=== PATIENT | female | born 1945 | race Two or more races ===

== ENCOUNTER 2021-06-11 06:25 | Day surgery (SDC) | payer OTHER | END 2021-06-11 12:50 | disposition home or self-care (01) | LOC: AMB-ENDOS 06:25 | PROVIDERS: ATTEND Surgery | DX: K62.89 Other specified diseases of anus and rectum (principal); K64.8 Other hemorrhoids; Z20.822 Contact with and (suspected) exposure to COVID-19 ==

== ENCOUNTER 2022-02-17 12:15 | Inpatient (IN) | payer OTHER ==
[~2022-02-17] VITALS: Ht 152.4 cm; Wt 68.0 kg
[2022-02-17] MEDS ORDERED: HYDROCHLOROTHIA25 MG PO (15:34)
[2022-02-17] MEDS ORDERED: TOPROL XL25 M1 PO (15:34)
[2022-02-17] MEDS ORDERED: VASOTEC20 M1 PO (15:34)
[2022-02-17] MEDS ORDERED: FENOF PO (15:35)
[2022-02-17] MEDS ORDERED: METHYLPRED PO (15:35)
[2022-02-17] MEDS ORDERED: ATORVASTATIN CA40 MG PO (15:36)
[2022-02-17] MEDS ORDERED: AMLODIPI PO (15:37)
[2022-02-17] MEDS ORDERED: PANTOPRAZOLE SO40 M2 PO (15:37)
[2022-02-17] MEDS ORDERED: DRAMAMINE LESS25 MG PO (15:38)
[2022-02-20] MEDS ORDERED: NORVASC5 MG PO (13:07)
[2022-02-20] MEDS ORDERED: FENOFIBRATE48 MG PO (13:08)
[2022-02-20] MEDS ORDERED: METHYLPREDNISOLO4 MG PO (13:09)
== END 2022-03-03 14:47 | disposition home or self-care (01) | DRG 329 ==
LOC: ADM 12:15 → EDSTATUS 12:15 → SURH 02-19 07:00 → O/R 02-20 05:40 → SURH 02-20 07:00
PROVIDERS: Urology; ADMIT Surgery; ATTEND Surgery
PROC: 0DQ84ZZ Repair Small Intestine, Percutaneous Endoscopic Approach (ICD-10-PCS; 2022-02-20)
PROC: 0TQB0ZZ Repair Bladder, Open Approach (ICD-10-PCS; 2022-02-20)
PROC: 0DNW4ZZ Release Peritoneum, Percutaneous Endoscopic Approach (ICD-10-PCS; 2022-02-20)
PROC: 0TNB4ZZ Release Bladder, Percutaneous Endoscopic Approach (ICD-10-PCS; 2022-02-20)
PROC: 0DJD8ZZ Inspection of Lower Intestinal Tract, Via Natural or Artificial Opening Endoscopic (ICD-10-PCS; 2022-02-20)
PROC: 0T7D8DZ Dilation of Urethra with Intraluminal Device, Via Natural or Artificial Opening Endoscopic (ICD-10-PCS; 2022-02-20)
PROC: 0DTN4ZZ Resection of Sigmoid Colon, Percutaneous Endoscopic Approach (ICD-10-PCS; principal; 2022-02-20 07:00)
PROC: 0DBP4ZZ Excision of Rectum, Percutaneous Endoscopic Approach (ICD-10-PCS; 2022-02-20 07:00)
PROC: 02HV33Z Insertion of Infusion Device into Superior Vena Cava, Percutaneous Approach (ICD-10-PCS; 2022-02-24)
PROC: 30233N1 Transfusion of Nonautologous Red Blood Cells into Peripheral Vein, Percutaneous Approach (ICD-10-PCS; 2022-02-25)
PROC: 4A12X4Z Monitoring of Cardiac Electrical Activity, External Approach (ICD-10-PCS; 2022-02-26)
DX: K57.30 Diverticulosis of large intestine without perforation or abscess without bleeding (principal); K29.61 Other gastritis with bleeding; N32.1 Vesicointestinal fistula; D62 Acute posthemorrhagic anemia; K91.71 Accidental puncture and laceration of a digestive system organ or structure during a digestive system procedure; R33.8 Other retention of urine; K66.0 Peritoneal adhesions (postprocedural) (postinfection); E87.6 Hypokalemia; E83.42 Hypomagnesemia; R10.32 Left lower quadrant pain; R19.4 Change in bowel habit; R19.7 Diarrhea, unspecified; K64.8 Other hemorrhoids; D12.6 Benign neoplasm of colon, unspecified; I12.9 Hypertensive chronic kidney disease with stage 1 through stage 4 chronic kidney disease, or unspecified chronic kidney disease; N18.30 Chronic kidney disease, stage 3 unspecified; Z20.822 Contact with and (suspected) exposure to COVID-19; Z86.718 Personal history of other venous thrombosis and embolism; G47.33 Obstructive sleep apnea (adult) (pediatric)

== ENCOUNTER 2022-03-09 11:49 | Inpatient (IN) | payer OTHER ==
[~2022-03-09] VITALS: Ht 152.4 cm; Wt 68.0 kg
[~2022-03-09 11:49] MED LIST: AMLODIPI PO; ATORVASTATIN CA40 MG PO; DRAMAMINE LESS25 MG PO; FENOF PO; FENOFIBRATE48 MG PO; HYDROCHLOROTHIA25 MG PO; METHYLPRED PO; METHYLPREDNISOLO4 MG PO; NORVASC5 MG PO; PANTOPRAZOLE SO40 M2 PO; TOPROL XL25 M1 PO; VASOTEC20 M1 PO
[2022-03-10] MEDS ORDERED: FUSION PLUS CA1 EACH (14:59)
[2022-03-10] MEDS ORDERED: ATORVASTATIN CA40 MG (15:00)
[2022-03-10] MEDS ORDERED: FENOFIBRATE48 MG (15:00)
[2022-03-10] MEDS ORDERED: HYFIBER WI12 GM/302 (15:00)
[2022-03-10] MEDS ORDERED: PANTOPRAZOLE SO40 MG (15:00)
[2022-03-10] MEDS ORDERED: LOPRESSOR25 MG (15:00)
[2022-03-10] MEDS ORDERED: AMLODIPINE BESYL5 MG (15:00)
[2022-03-10] MEDS ORDERED: HYDROXYCHLOROQ200 MG (15:00)
[2022-03-10] MEDS ORDERED: FAMOTIDINE40 MG (15:00)
[2022-03-10] MEDS ORDERED: HYDROCHLOROTHIA25 MG (15:00)
[2022-03-10] MEDS ORDERED: VITAMIN B-121000 MC1 (15:01)
[2022-03-10] MEDS ORDERED: VITAMIN D3125 MC1 (15:01)
[2022-03-23] MEDS ORDERED: METHYLPREDNISOLO4 MG PO (14:58)
[2022-03-23] MEDS ORDERED: MAGNESIUM CHLOR70 MG PO (14:58)
[2022-03-23] MEDS ORDERED: ABANEU-SL TABL1 EACH SL (14:58)
[2022-03-23] MEDS ORDERED: METOPROLOL TART50 MG PO (14:58)
[2022-03-23] MEDS ORDERED: SPIRONOLACTONE25 MG PO (14:58)
[2022-03-23] MEDS ORDERED: ATORVASTATIN CA40 MG PO (14:58)
[2022-03-23] MEDS ORDERED: AMLODIPINE BESYL5 MG PO (14:58)
[2022-03-23] MEDS ORDERED: VASOTEC20 M1 PO (14:58)
[2022-03-23] MEDS ORDERED: FUSION PLUS CA1 EACH PO (14:58)
== END 2022-03-23 16:31 | disposition home or self-care (01) | DRG 698 ==
LOC: ER 11:49 → SURG 18:09 → SURH 03-11 09:59 → MEDJ 03-13 11:14 → SURH 03-20 13:39
PROVIDERS: ADMIT Surgery; ATTEND Surgery
PROC: BW2110Z Computerized Tomography (CT Scan) of Abdomen and Pelvis using Low Osmolar Contrast, Unenhanced and Enhanced (ICD-10-PCS; 2022-03-09)
PROC: 02HV33Z Insertion of Infusion Device into Superior Vena Cava, Percutaneous Approach (ICD-10-PCS; principal; 2022-03-10)
PROC: 4A12X45 Monitoring of Cardiac Electrical Activity, Ambulatory, External Approach (ICD-10-PCS; 2022-03-12)
PROC: BT00YZZ Plain Radiography of Bladder using Other Contrast (ICD-10-PCS; 2022-03-12)
PROC: B24BYZZ Ultrasonography of Heart with Aorta using Other Contrast (ICD-10-PCS; 2022-03-12)
PROC: 8E0ZXY6 Isolation (ICD-10-PCS; 2022-03-13)
PROC: 5A0945A Assistance with Respiratory Ventilation, 24-96 Consecutive Hours, High Flow/Velocity Cannula (ICD-10-PCS; 2022-03-18)
PROC: BW24ZZZ Computerized Tomography (CT Scan) of Chest and Abdomen (ICD-10-PCS; 2022-03-18)
PROC: XW033E5 Introduction of Remdesivir Anti-infective into Peripheral Vein, Percutaneous Approach, New Technology Group 5 (ICD-10-PCS; 2022-03-20)
DX: T83.518A Infection and inflammatory reaction due to other urinary catheter, initial encounter (principal); U07.1 COVID-19; N39.0 Urinary tract infection, site not specified; R71.0 Precipitous drop in hematocrit; J10.1 Influenza due to other identified influenza virus with other respiratory manifestations; I48.91 Unspecified atrial fibrillation; T83.84XA Pain due to genitourinary prosthetic devices, implants and grafts, initial encounter; R53.81 Other malaise; E87.6 Hypokalemia; I11.9 Hypertensive heart disease without heart failure; E78.5 Hyperlipidemia, unspecified; Z90.49 Acquired absence of other specified parts of digestive tract; Z79.52 Long term (current) use of systemic steroids